=== PATIENT | female | born 1990 | race African-American/Black ===

== ENCOUNTER 2025-08-05 18:28 | Emergency (ER) | payer MEDICAID, OTHER ==
[~2025-08-05] VITALS: Ht 172.7 cm; Wt 104.9 kg
--- NOTE | 2025-08-05 18:44 | ED.PDOC ---
History of Present Illness HPI Comments 34 y/o M presents with c/c of right upper tooth pain for 3x weeks. Denies any further acute symptoms. Vitals stable and within normal limits. Chief Complaint: Tooth Pain Time Seen by MD: 18:40 Reviewed Notes: Nurses Notes, Medications, Allergies Allergies: Coded Allergies: NO KNOWN ALLERGIES (Unverified , 08/05/25) Home Meds Active Scripts Nabumetone (Nabumetone) 750 Mg Tab, 1 TAB PO BID PRN for 5 Days, #10 TAB Prov:KARLOS ARAUJO [employer] 08/05/25 Clindamycin Hcl (Clindamycin Hcl) 300 Mg Cap, 300 MG PO QID for 7 Days, #28 CAP Prov:KARLOS ARAUJO [employer]AD 08/05/25 Information Source: Patient Mode of Arrival: Ambulatory Severity: Moderate Timing: Weeks Duration: Since onset Prehospital treatment: None Past Medical History PAST MEDICAL HISTORY: Denies Surgical History: Denies all surgeries PRODUCTION ASSEMBLER History: No Pertinent PRODUCTION ASSEMBLER History Social History Smoker: Non-Smoker Alcohol: Denies ETOH Use Drugs: Denies Drug Use Lives In: Home All Other Systems: Reviewed and Negative (As per HPI) Physical Exam General Appearance: No Apparent Distress, Normal HEENT: Pharynx Normal, TMs Normal, Other (tooth number 14 is cracked and decayed with abscess bubble; otherwise, normal inspection ) Neck: Full Range of Motion, Non-Tender, Normal, Normal Inspection Respiratory: Chest Non-Tender, Lungs Clear, No Accessory Muscle Use, No Respiratory Distress, Normal Breath Sounds Cardiovascular: No Edema, No JVD, No Murmur, No Gallop, Normal Peripheral Pulses, Regular Rate/Rhythm Breast Exam: Deferred Gastrointestinal: No Organomegaly, Non Tender, No Pulsatile Mass, Normal Bowel Sounds, Soft Genitalia: Deferred Pelvic: Deferred Rectal: Deferred Extremities: No calf tenderness, Normal capillary refill, Normal inspection, Normal range of motion, Non-tender, No pedal edema Musculoskeletal : Apperance: Normal Neurologic: Alert, dehydrogenation supervisor II-XII nml as Tested, No Motor Deficits, Normal Affect, Normal Mood, No Sensory Deficits Cerebellar Function: Normal Reflexes: Normal Skin: Dry, Normal Color, Warm Lymphatic: No Adenopathy Was a procedure done? Was a procedure done?: No Differential Dx Considerations may include: dental carries X-Ray, Labs, Meds, VS Vital Signs Date Time Temp Pulse Resp B/P (MAP) Pulse Ox O2 Delivery O2 Flow Rate FiO2 08/05/25 18:30 98.1 96 18 139/99 97 98.1 X-Ray, Labs, Meds, VS Comment Patient treated with Rocephin 1 g IM, [place] 5 mg p.o., Toradol 60 mg IM and Hurricaine spray. Script trial of clinda in home advised take medication as prescribed side effects discussed. Advised to follow up with make an appointment with dental for resolution. ER return precautions given patient indicates understanding and agrees with discharge plan of care. Time of 1ST Reevaluation: 19:10 Reevaluation 1ST: Unchanged Time of 2ND Reevaluation: 18:56 Reevaluation 2ND: Improved Patient Education/Counseling: Diagnosis, Treatment, Need For Follow Up Family Education/Counseling: No Family Present SEPSIS Sepsis Screen Date sepsis recognized/suspect: Aug 05, 2025 Time Sepsis recognized/suspect: 1831 Recent Procedure: No On Antibiotic Therapy: No Respiratory Rate >20: No Heart Rate >90: No Temp<36 C (96.8 F) or >38.3 C: No SBP <90 or MAP <65 mmHG: No New Acute Mental Status Change: No Is the patient on CPAP, BIPAP,: No Vital Signs Date Time Temp Pulse Resp B/P (MAP) Pulse Ox O2 Delivery O2 Flow Rate FiO2 08/05/25 18:30 98.1 96 18 139/99 97 98.1 Departure 1 Departure Time of Disposition: 18:56 Impression: Primary Impression: Infected dental caries Disposition: HOME / SELF CARE / HOMELESS Condition: Stable e-Prescriptions Nabumetone (Nabumetone) 750 Mg Tab 1 TAB PO BID PRN for 5 Days, #10 TAB Prov: KARLOS ARAUJO 08/05/25 Clindamycin Hcl (Clindamycin Hcl) 300 Mg Cap 300 MG PO QID for 7 Days, #28 CAP Prov: KARLOS ARAUJO 08/05/25 Discharged With: Self Critical Care Note Critical Care Time?: No Stability Stability form required: No Heart Score Heart Score: Heart Score Response (Comments) Value History N/A 0 EKG N/A 0 Age N/A 0 Risk Factors N/A 0 Troponin N/A 0 Total 0 I personally scribed for ER ([email or web address]) on 08/05/25 at 18:44. Electronically submitted by Dalton Giron ([email or web address]). ER Aug 05, 2025 18:44 KARLOS ARAUJO Aug 05, 2025 18:46
[2025-08-05] MEDS ORDERED: NABU-74 PO (18:46)
[2025-08-05] MEDS ORDERED: CLIN1CAP70 PO (18:46)
[2025-08-05] MEDS: HYDROcodone-ACET 5/325MG TAB PO ONE (18:56)
[2025-08-05] MEDS: cefTRIAXone SOD 1,000 MG VL IM ONE (19:06)
[2025-08-05] MEDS: KETOROLAC TROMETH 60MG/2ML VIAL IM ONE (19:06)
[2025-08-05 19:34] VITALS: BP 144/95; PULSE 96; RESP 16; TEMP 98.1; O2SAT 98
[2025-08-05] MEDS ORDERED: IBUP-1456 PO (19:34)
== END 2025-08-05 19:34 | disposition home or self-care (01) ==
LOC: ER 18:28
DX: K04.7 Periapical abscess without sinus (principal); Z79.899 Other long term (current) drug therapy
CPT/HCPCS: 96372; 99284; J0696; J1885